=== PATIENT | female | born 1980 | race Caucasian/White ===

== ENCOUNTER 2017-02-11 21:34 | Emergency (ER) | payer BC, MEDICAID ==
--- NOTE | 2017-02-11 22:03 | ER Document Report ---
ED Medical Screen (RME) - General Stated Complaint: RIGHT SHOULDER PAIN Time seen by provider: 21:56 Mode of Arrival: Ambulatory Information source: Patient Notes: 36-year-old female presents to ED for right shoulder pain for the last 3 weeks. States 4 weeks ago she rolled off of her new bed because she was not banded tension hit her shoulder on the nightstand. States about 3 weeks ago she started having muscle pain in his shoulder so she is used icy hot and whatever she could use to help with the pain. She was seen at the urgent care on 2016 and prescribed meloxicam. On January 27 she was prescribed ibuprofen by her primary doctor and she has been bake taking both. On January 29 she was put in a sling was told not to work but she needed the money so she worked with the sling. On Wednesday, February 05 she took the sling off because her doctor told her after a week she would be fine. Now the shoulder hurts all the time and if she tries to put the splint back on the pain is worse. She states the pain is a throbbing and she has tingling in the first and second finger of the right. 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 She has had a bilateral tubal ligation and a uterine ablation and does not have periods anymore. She states she had a x-ray on 01/29/2017 and the provider told her that it looked like the tissue between the bones was thinning but the provider would send it off to be seen. Patient has not heard anything since then. I have greeted and performed a rapid initial assessment of this patient. A comprehensive ED assessment and evaluation of the patient, analysis of test results and completion of medical decision making process will be conducted by an additional ED providers. TRAVEL OUTSIDE OF THE [place] IN LAST 30 DAYS: No - Related Data Allergies/Adverse Reactions: No Known Allergies Allergy (Verified 10/18/16 09:14) Past Medical History Past Surgical History: Reports: Hx Appendectomy, Hx Cholecystectomy - Immunizations Hx Diphtheria, Pertussis, Tetanus Vaccination: Yes Physical Exam - Vital signs Vitals: Temp Pulse Resp BP Pulse Ox 98.5 F 74 16 129/67 H 100 02/11/17 21:50 02/11/17 21:50 02/11/17 21:50 02/11/17 21:50 02/11/17 21:50 Course - Vital Signs Vital signs: Temp Pulse Resp BP Pulse Ox 98.5 F 74 16 129/67 H 100 02/11/17 21:50 02/11/17 21:50 02/11/17 21:50 02/11/17 21:50 02/11/17 21:50
[2017-02-12] MEDS ORDERED: HYDROCODONE/ACETAMINOPHEN 5-325 MG TABLET PO ONE (02:01)
--- NOTE | 2017-02-12 02:46 | ER Document Report ---
ED Extremity Problem, Upper - General Chief Complaint: Shoulder Pain Stated Complaint: RIGHT SHOULDER PAIN Mode of Arrival: Ambulatory Information source: Patient Notes: 36-year-old female presents to the emergency department complaining of right shoulder pain. Patient reports approximately 4 weeks ago she rolled off of her bed accidentally striking the lateral aspect of her right shoulder on bedside furniture. Patient reports has been evaluated by primary care provider and at urgent care over the last 4 weeks however symptoms are persistent. Reports pain is worse with movement of right shoulder and states works at [employer] doing repetitive lifting and movement with her right arm and pain is worse in the evenings after work. Reports has been taking prescribed meloxicam by PCP and ibuprofen without significant improvement. Denies fever, chest pain, shortness of breath, extremity numbness or tingling, swelling, or color changes. TRAVEL OUTSIDE OF THE [place] IN LAST 30 DAYS: No - HPI Patient complains to provider of: Right, Shoulder Recent injury: Possibly Quality of pain: Achy Severity of pain: Moderate Pain Level: 3 Associated symptoms: None Exacerbated by: Movement Relieved by: Rest, Positioning Similar symptoms previously: Yes Recently seen / treated by doctor: Yes - Related Data Allergies/Adverse Reactions: No Known Allergies Allergy (Verified 10/18/16 09:14) Past Medical History - General Information source: Patient - Social History Smoking Status: Former Smoker Cigarette use (# per day): No Chew tobacco use (# tins/day): No Frequency of alcohol use: None Drug Abuse: None Lives with: Family Family History: Reviewed & Not Pertinent Patient has suicidal ideation: No Patient has homicidal ideation: No - Medical History Medical History: Negative Renal/ Medical History: Denies: Hx Peritoneal Dialysis Past Surgical History: Reports: Hx Appendectomy, Hx Cholecystectomy - Immunizations Hx Diphtheria, Pertussis, Tetanus Vaccination: Yes Review of Systems - Review of Systems Constitutional: No symptoms reported EENT: No symptoms reported Cardiovascular: No symptoms reported Respiratory: No symptoms reported Gastrointestinal: No symptoms reported Genitourinary: No symptoms reported Female Genitourinary: No symptoms reported Musculoskeletal: See HPI Skin: No symptoms reported Hematologic/Lymphatic: No symptoms reported Neurological/Psychological: No symptoms reported -: Yes All other systems reviewed and negative Physical Exam - Vital signs Vitals: Temp Pulse Resp BP Pulse Ox 98.5 F 74 16 129/67 H 100 02/11/17 21:50 02/11/17 21:50 02/11/17 21:50 02/11/17 21:50 02/11/17 21:50 - General General appearance: Appears well, Alert In distress: None - HEENT Head: Normocephalic, Atraumatic Eyes: Normal Pupils: PERRL - Respiratory Respiratory status: No respiratory distress Chest status: Nontender Breath sounds: Normal Chest palpation: Normal. No: Flail segment, [place] frothy sputum, Purulent sputum , Subcutaneous emphysema, Sucking chest wound, Tender, Ecchymosis, Wounds, Other - Cardiovascular Rhythm: Regular Heart sounds: Normal auscultation Murmur: No Pulses: Normal: Radial Normal capillary refill: Yes - Abdominal Inspection: Normal Distension: No distension Bowel sounds: Normal Tenderness: Nontender Organomegaly: No organomegaly - Back Back: Normal, Nontender. No: Tender, Deformity/step-off, CVA tenderness, Vertebra tenderness, Scars, Scoliosis, Wounds, Other - Extremities General upper extremity: Normal inspection, Nontender, Normal color, Normal ROM , Normal strength, Normal temperature. No: Edema General lower extremity: Normal inspection, Nontender, Normal color, Normal ROM , Normal strength, Normal temperature, Normal weight bearing. No: Edema Shoulder: Tender - Tenderness with palpation to lateral and anterior aspect of right shoulder. Full but painful active, passive, and against resistance range of motion. No swelling, erythema, bruising, warmth. Distal motor and neurovascular function intact.. No: Normal, Nontender, Abrasion, Deformity, Dislocation, Ecchymosis, Instability, Laceration, Limited ROM, Other Arm: Normal, Nontender Elbow: Normal, Nontender Forearm: Normal, Nontender Wrist: Normal, Nontender Hand: Normal, Nontender Course - Re-evaluation Re-evalutation: 02/12/17 02:46 Patient hemodynamically stable, in no distress, afebrile. Right shoulder x-ray unremarkable. No suggestion of emergent injury or other infectious, intrathoracic, or emergent etiology at this time. Patient declined sling states has one at home. Appears stable for discharge at this time and agrees with home care, follow-up, and ED return precautions. - Vital Signs Vital signs: Temp Pulse Resp BP Pulse Ox 98.5 F 60 16 127/75 H 100 02/12/17 02:52 02/12/17 02:52 02/12/17 02:52 02/12/17 02:52 02/12/17 02:53 - Diagnostic Test Radiology reviewed: Image reviewed, Reports reviewed Discharge - Discharge Clinical Impression: Right shoulder injury Qualifiers: Encounter type: initial encounter Qualified Code(s): S49.91XA - Unspecified injury of right shoulder and upper arm, initial encounter Condition: Stable Disposition: HOME, SELF-CARE Instructions: Exercise Program for the Shoulder ([facility]), Shoulder Injury ([facility]), Ice Packs ([facility]), Warm Packs ([facility]), Use of [id number]-Gul-Fwtvufc Ibuprofen ([facility]), Oral Narcotic Medication ([facility]), Muscle Relaxers ([facility]) Additional Instructions: Follow-up with your primary care provider and orthopedics this week as discussed. Return to the emergency department for any worsening symptoms or concerns. Prescriptions: Methocarbamol [Robaxin 500 mg Tablet] 500 mg PO Q8HP PRN #8 tablet PRN Reason: Hydrocodone/Acetaminophen [[place] 5-325 mg Tablet] 1 tab PO Q6H PRN #8 tablet PRN Reason: Referrals: NATALIE ALTAMIRANO MD [ACTIVE STAFF] - Follow up in 3-5 days
[2017-02-12 02:53] VITALS: BP 127/75
== END 2017-02-12 02:58 | disposition home or self-care (01) ==
LOC: ER 21:34
DX: S49.91XA Unspecified injury of right shoulder and upper arm, initial encounter (principal); W06.XXXA Fall from bed, initial encounter; Z87.891 Personal history of nicotine dependence; Z90.49 Acquired absence of other specified parts of digestive tract
CPT/HCPCS: 99283

== ENCOUNTER 2020-02-12 09:02 | Emergency (ER) | payer SELFPAY ==
[2020-02-12] MEDS ORDERED: IPRATROPIUM/ALBUTEROL 0.5-2.5 MG/3 ML AMPUL NEB ONE (09:15)
--- NOTE | 2020-02-12 09:18 | ER Document Report ---
HPI - HPI Patient complains to provider of: COUGH Time Seen by Provider: 02/12/20 09:12 Onset: Last week Onset/Duration: Sudden Quality of pain: Achy Context: 39-year-old female with history of asthma presents with complaints of pain with deep breath. Gives history of last Wednesday she was cleaning a decent sized room with chlorine. She reports that she had to use a lot of chlorine because it was supposed be a white room but it was black. She reports that since that time she is having difficulty with deep breaths pain with deep breath. Denies fever vomiting diarrhea. Reports she does not have an inhaler because she does not have insurance. Associated Symptoms: None Exacerbated by: Deep breathing Relieved by: Denies Similar symptoms previously: No Recently seen / treated by doctor: No - REPRODUCTIVE Reproductive: DENIES: : Past Medical History - General Information source: Patient Last Menstrual Period: yesterday - Social History Smoking Status: Former Smoker Cigarette use (# per day): No Frequency of alcohol use: None Drug Abuse: None Family History: Reviewed & Not Pertinent Patient has suicidal ideation: No Patient has homicidal ideation: No Pulmonary Medical History: Reports: Hx Asthma Renal/ Medical History: Denies: Hx Peritoneal Dialysis Past Surgical History: Reports: Hx Appendectomy, Hx Cholecystectomy - Immunizations Hx Diphtheria, Pertussis, Tetanus Vaccination: Yes Vertical Provider Document - CONSTITUTIONAL Agree With Documented VS: Yes Exam Limitations: No Limitations General Appearance: WD/WN, No Apparent Distress - INFECTION CONTROL TRAVEL OUTSIDE OF THE [place] IN LAST 30 DAYS: No - HEENT HEENT: Atraumatic, Normal ENT Exam, Normocephalic, PERRLA. negative: Conjuctival Injection, Pharyngeal Erythema, Tympanic Membrane Bulging - NECK Neck: Normal Inspection, Supple. negative: Lymphadenopathy-Left, Lymphadenopathy-Right - RESPIRATORY Respiratory: Breath Sounds Normal, No Respiratory Distress - CARDIOVASCULAR Cardiovascular: Regular Rate, Regular Rhythm - GI/ABDOMEN Gastrointestinal: Abdomen Soft, Abdomen Non-Tender - MUSCULOSKELETAL/EXTREMETIES Musculoskeletal/Extremeties: CARA SOTO - NEURO Level of Consciousness: Awake, Alert, Appropriate Motor/Sensory: No Motor Deficit - DERM Integumentary: Warm, Dry Course - Re-evaluation Re-evalutation: 02/12/20 13:35 Chest X-Ray 02/12/20 09:15 IMPRESSION: Subtle asymmetric airspace disease in the right upper lobe new from 2013. Patient was instructed on right lobe airspace. Dr. Horn consulted regarding x- ray and chemical exposure. He advises Zithromax and steroids.. Patient was instructed on Zithromax and steroids. Instructed to monitor symptoms monitor temperature return for concerns difficulty breathing. She verbalized understanding to all instructions. - Vital Signs Vital signs: Temp Pulse Resp BP Pulse Ox 97.6 F 65 18 134/86 H 100 02/12/20 09:06 02/12/20 09:06 02/12/20 09:06 02/12/20 09:06 02/12/20 09:06 - Diagnostic Test Radiology reviewed: Image reviewed, Reports reviewed Discharge - Discharge Clinical Impression: Cough, History of asthma, Wheeze Condition: Stable Disposition: HOME, SELF-CARE Instructions: Azithromycin ([facility]), Bronchodilators ([facility]), Steroid Medication Additional Instructions: *You have been evaluated for a cough, wheeze *Take medication as prescribed, use inhaler as prescribed *Increase fluids *Monitor your temperature, take Tylenol as indicated *Follow up with a primary care provider within one week for recheck *Return to ED for increasing cough, worsening condition, changes, needs, fever, difficulty breathing, concerns Monitor your blood pressure. Your blood pressure was elevated today. This may be because you were anxious, in pain or because you need medication. It is important to follow up with your primary care provider for full evaluation. Prescriptions: Prednisone [Deltasone 10 mg Tablet] 10 mg PO ASDIR PRN #21 tablet PRN Reason: Azithromycin [Zithromax 250 mg Tablet] 250 mg PO DAILY #4 tablet Forms: Elevated Blood Pressure
--- NOTE | 2020-02-12 09:46 | RADIOLOGY REPORT (SQ) ---
EXAM DESCRIPTION: CHEST 2 VIEWS COMPLETED DATE/TIME: 02/12/2020 9:29 am REASON FOR STUDY: cough, chlorine exposure, pain with db COMPARISON: 06/29/2014 EXAM PARAMETERS: NUMBER OF VIEWS: two views TECHNIQUE: Digital Frontal and Lateral radiographic views of the chest acquired. RADIATION DOSE: NA LIMITATIONS: none FINDINGS: LUNGS AND PLEURA: Asymmetric airspace disease in the periphery of the right upper lobe. M ost likely infectious or inflammatory. No effusions. No pneumothorax. MEDIASTINUM AND HILAR STRUCTURES: No masses or contour abnormalities. HEART AND VASCULAR STRUCTURES: Heart normal size. No evidence for failure. BONES: No acute findings. HARDWARE: None in the chest. OTHER: No other significant finding. IMPRESSION: Subtle asymmetric airspace disease in the right upper lobe new from 2013. TECHNICAL DOCUMENTATION: JOB ID: [id number] 2010 [employer]- All Rights Reserved Reading location - IP/workstation name: [email or web address]
[2020-02-12] MEDS ORDERED: ALBUTEROL SULFATE HFA (90 MCG/PUFF) 8 GM MDI IH ONE (09:57)
[2020-02-12] MEDS ORDERED: AZITHROMYCIN 250 MG TABLET PO ONE (10:10)
[2020-02-12] MEDS ORDERED: PREDNISONE 20 MG TABLET PO ONE (10:10)
[2020-02-12 10:26] VITALS: BP 132/70
== END 2020-02-12 10:25 | disposition home or self-care (01) ==
LOC: ER 09:02
DX: J45.909 Unspecified asthma, uncomplicated (principal); R05 Cough; Z87.891 Personal history of nicotine dependence
CPT/HCPCS: 99284; 71046; J7512; J7620; J3490

== ENCOUNTER 2020-05-13 23:08 | Emergency (ER) | payer OTHER ==
[2020-05-13] MEDS ORDERED: DIPH/PERTUSS(ACELL)/TETANUS VAC/PF 0.5 ML SYR (>=10YO) IM ONE (23:34)
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
[2020-05-14 00:07] LABS: ABSOLUTE BASOPHILS # (AUTO) 0.1 10^3/uL (0.0-0.2); ABSOLUTE LYMPHOCYTES (AUTO) 2.2 10^3/uL (0.5-4.7); ABSOLUTE MONOCYTES (AUTO) 0.5 10^3/uL (0.1-1.4); ABSOLUTE NEUT (AUTO) 8.9 10^3/uL (1.7-8.2); BASOPHILS % (AUTO) 0.5 % (0-2); EOSINOPHILS % (AUTO) 0.2 % (0-6); HEMATOCRIT 46.6 % (36.0-47.0); HEMOGLOBIN 15.7 g/dL (12.0-15.5); LYMPHOCYTES % (AUTO) 18.5 % (13-45); MEAN CORPUSCULAR HEMOGLOBIN 28.8 pg (27.0-33.4); MEAN CORPUSCULAR HGB CONC 33.6 g/dL (32.0-36.0); MEAN CORPUSCULAR VOLUME 86 fl (80-97); MONOCYTES % (AUTO) 4.6 % (3-13); PLATELET COUNT 314 10^3/uL (150-450); RED BLOOD COUNT 5.44 10^6/uL (3.72-5.28); RED CELL DISTRIBUTION WIDTH 13.9 % (11.5-14.0); SEGMENTED NEUTROPHILS % (AUTO) 76.2 % (42-78); TOTAL CELLS COUNTED % (AUTO) 100 %; WHITE BLOOD COUNT 11.7 10^3/uL (4.0-10.5)
[2020-05-14] MEDS ORDERED: KETOROLAC TROMETHAMINE INJ/PF 30 MG/1 ML SDV IV ONE (00:16)
[2020-05-14 00:22] LABS: ALBUMIN 5.1 g/dL (3.5-5.0); ALKALINE PHOSPHATASE 73 U/L (38-126); ANION GAP 10 (5-19); ASPARTATE AMINO TRANSFERASE 43 U/L (14-36); BILIRUBIN,TOTAL 0.5 mg/dL (0.2-1.3); BLOOD UREA NITROGEN 8 mg/dL (7-20); CALCIUM 9.9 mg/dL (8.4-10.2); CARBON DIOXIDE 24 mmol/L (22-30); CHLORIDE 106 mmol/L (98-107); GLUCOSE 108 mg/dL (75-110); POTASSIUM 4.1 mmol/L (3.6-5.0); TOTAL PROTEIN 8.9 g/dL (6.3-8.2)
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
[2020-05-14 01:39] LABS: APPEARANCE,URINE CLEAR; BILIRUBIN,URINE NEGATIVE (NEGATIVE); COLOR,URINE STRAW; GLUCOSE, URINE NEGATIVE (NEGATIVE); KETONES,URINE NEGATIVE (NEGATIVE); LEUKOCYTE ESTERASE,URINE NEGATIVE (NEGATIVE); NITRITE,URINE NEGATIVE (NEGATIVE); PROTEIN,URINE NEGATIVE (NEGATIVE); URINE SPECIFIC GRAVITY 1.038; UROBILINOGEN,URINE NEGATIVE mg/dL (<2.0)
[2020-05-14 01:54] LABS: URINE AMPHETAMINES SCREEN NEGATIVE; URINE BARBITURATES SCREEN NEGATIVE; URINE BENZODIAZEPINES SCREEN NEGATIVE; URINE COCAINE SCREEN UNCONFIRMED POSITIVE; URINE METHADONE SCREEN NEGATIVE; URINE PHENCYCLIDINE SCREEN NEGATIVE
[2020-05-14 01:55] LABS: URINE MARIJUANA (THC) SCREEN UNCONFIRMED POSITIVE
[2020-05-14] MEDS ORDERED: PROMETHAZINE HCL INJ 25 MG/1 ML VIAL IV ONE (03:00)
[2020-05-14] MEDS ORDERED: MORPHINE SULFATE 10 MG/ML INJ IV ONE (03:16)
[2020-05-14 04:11] VITALS: BP 126/86
== END 2020-05-14 04:14 | disposition short-term general hospital (02) ==
LOC: ER 23:08
DX: F14.129 Cocaine abuse with intoxication, unspecified (principal); F12.20 Cannabis dependence, uncomplicated; F10.929 Alcohol use, unspecified with intoxication, unspecified; S32.001A Stable burst fracture of unspecified lumbar vertebra, initial encounter for closed fracture; S01.511A Laceration without foreign body of lip, initial encounter; S01.21XA Laceration without foreign body of nose, initial encounter; M54.9 Dorsalgia, unspecified; M54.5 Low back pain; R22.0 Localized swelling, mass and lump, head; V87.7XXA Person injured in collision between other specified motor vehicles (traffic), initial encounter; F17.210 Nicotine dependence, cigarettes, uncomplicated; J45.909 Unspecified asthma, uncomplicated; F41.9 Anxiety disorder, unspecified
CPT/HCPCS: 99291; 99292; 90471; 96374; 96375; 36415; 80307 ×2; 84703; 85025; 80053; 81001; 70450; 70486; 71275; 72125; 74177; 90715; J1885; J2270; J2550

== ENCOUNTER 2020-09-11 07:27 | Emergency (ER) | payer OTHER ==
[2020-09-11 07:37] VITALS: BP 119/71
[2020-09-11] MEDS ORDERED: HYDROCODONE/ACETAMINOPHEN 5-325 MG TABLET PO ONE (08:38)
[2020-09-11] MEDS ORDERED: CEPHALEXIN 500 MG CAPSULE PO ONE (08:39)
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
== END 2020-09-11 10:34 | disposition home or self-care (01) ==
LOC: ER 07:27
DX: S91.311A Laceration without foreign body, right foot, initial encounter (principal); S93.601A Unspecified sprain of right foot, initial encounter; W22.8XXA Striking against or struck by other objects, initial encounter; Y93.89 Activity, other specified; M25.579 Pain in unspecified ankle and joints of unspecified foot; F17.200 Nicotine dependence, unspecified, uncomplicated; J45.909 Unspecified asthma, uncomplicated
CPT/HCPCS: 99283